=== PATIENT | female | born 1945 | race Caucasian/White ===

== ENCOUNTER 2020-11-28 08:11 | Day surgery (SDC) | payer MEDICARE, OTHER ==
[~2020-11-28] VITALS: Ht 170.2 cm; Wt 70.3 kg
[~2020-11-28 08:11] MED LIST: METO-624 PO; SPIR50TA25 PO
[2020-11-28] MEDS ORDERED: fentaNYL citrate 0.05 MG/ML VIAL ONE (10:32)
[2020-11-28] MEDS ORDERED: LIDOCAINE 2% 100 MG/5 ML UJET TP ONE (10:32)
[2020-11-28] MEDS ORDERED: MIDAZOLAM 2 MG/2 ML VIAL ONE (10:32)
[2020-11-28] MEDS ORDERED: fentaNYL citrate 0.05 MG/ML VIAL IVP ONE (12:05)
== END 2020-11-28 12:00 | disposition home or self-care (01) ==
LOC: MOR 08:11 → MMU 08:30 → MOR 12:00
PROVIDERS: ATTEND Internal Medicine Gastroenterology
DX: Z12.11 Encounter for screening for malignant neoplasm of colon (principal); K21.9 Gastro-esophageal reflux disease without esophagitis; K75.89 Other specified inflammatory liver diseases; I10 Essential (primary) hypertension; E11.9 Type 2 diabetes mellitus without complications; E78.5 Hyperlipidemia, unspecified; Z88.8 Allergy status to other drugs, medicaments and biological substances; Z79.84 Long term (current) use of oral hypoglycemic drugs; Z79.899 Other long term (current) drug therapy
CPT/HCPCS: G0121; J3010; J2250